=== PATIENT | male | born 1940 | race Caucasian/White ===

== ENCOUNTER 2018-04-30 21:48 | Emergency (ER) | payer MEDICARE ==
[~2018-04-30] VITALS: Ht 180.3 cm; Wt 82.6 kg
[2018-04-30] MEDS ORDERED: BENZ-16 PO (22:58)
[2018-04-30 23:09] VITALS: BP 182/104
== END 2018-04-30 23:11 | disposition home or self-care (01) ==
LOC: ER 21:50
DX: R05 Cough (principal); E78.00 Pure hypercholesterolemia, unspecified; I10 Essential (primary) hypertension; E11.9 Type 2 diabetes mellitus without complications; Z87.891 Personal history of nicotine dependence
CPT/HCPCS: 99284